=== PATIENT | female | born 1955 | race Caucasian/White ===

== ENCOUNTER 2021-02-17 10:22 | Emergency (ER) | payer SELFPAY ==
[~2021-02-17] VITALS: Ht 162.6 cm; Wt 60.0 kg
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
[2021-02-17 10:36] VITALS: BP 120/78
[2021-02-17] MEDS ORDERED: SODIUM CHLORIDE 0.9% 1,000ML IVBOLUS ONE (12:00)
[2021-02-17] MEDS ORDERED: ONDANSETRON 2MG/ML, 2ML IVPush ONE (12:00)
[2021-02-17] MEDS ORDERED: SODIUM CHLORIDE 0.9% 1,000 ML IV ONE (12:00)
[2021-02-17] MEDS ORDERED: SODIUM CHLORIDE FLUSH 10ML SYR IVF ONE (12:00)
[2021-02-17] MEDS ORDERED: ONDANSETRON 2MG/ML, 2ML ONE (12:07)
[2021-02-17 12:10] LABS: ALBUMIN 3.9 g/dL (3.4-5.0); CHLORIDE 108 mmol/L (98-107)
[2021-02-17 12:16] LABS: ALANINE AMINOTRANSFERASE 21 U/L (12-78); ALKALINE PHOSPHATASE 100 U/L (45-117); ANION GAP 6 mmol/L (5-15); BILIRUBIN,TOTAL 0.7 mg/dL (0.2-1.0); CREATININE 0.88 mg/dL (0.55-1.02); TOTAL PROTEIN 7.1 g/dL (6.4-8.2)
[2021-02-17] MEDS ORDERED: PLEASE ENTER ALLERGIES MC SCH (12:30)
[2021-02-17 12:45] LABS: BASOPHILS % (AUTO) 0 % (0-1); EOSINOPHILS % (AUTO) 0 % (1-7); LYMPHOCYTES % (AUTO) 3 % (22-44); MEAN CORPUSCULAR HEMOGLOBIN 29.1 pg (27.0-34.8); MEAN CORPUSCULAR HGB CONC 33.7 g/dL (32.4-35.8); MEAN PLATELET VOLUME 7.7 fL (7.4-10.4); MONOCYTES % (AUTO) 3 % (2-9); NEUTROPHILS % (AUTO) 94 % (42-75); PLATELET COUNT 298 x10^3/uL (130-400); RED CELL DISTRIBUTION WIDTH 12.9 % (9.6-15.2)
[2021-02-17 14:47] LABS: MICROSCOPIC AUTO
--- NOTE | 2021-02-17 15:41 | NUR ---
PATIENT ANGRY AND INSITING ON STAYING STATING SHE DESERVES TO STAY BECASUE SHE HAS MEDICARE. PATIENT STATES SHE WAS POSIIONED WITH [employer] AND WE SHOULD HAVE TOUCHED BASE WITH [facility] AND WE NEED TO KEEP HER. THIS RN AND THE ED MD TO EXPLAIN THAT THERE IS NO MEDICAL REASON FOR HER TO NEED TO BE ADMITTED TO THE HOSPITAL. PATIENT ABLE TO AMBULATE ON DISCHARGE AND REQUESTED [employer] VOUCHER. PROVIDED VOUCHER
== END 2021-02-17 15:44 | disposition home or self-care (01) ==
LOC: ED 13:00
DX: K52.9 Noninfective gastroenteritis and colitis, unspecified (principal); D72.829 Elevated white blood cell count, unspecified; R11.2 Nausea with vomiting, unspecified
CPT/HCPCS: 36415; 80053; 81001; 83690; 85025; 87086; 96361; 96374; 99283; J2405; J7030